=== PATIENT | male | born 1965 | race African-American/Black ===

== ENCOUNTER 2019-09-09 10:31 | Observation (INO) | payer BC ==
[2019-09-09] MEDS ORDERED: NA CHLORIDE 0.9% 500 ML ONE (11:07)
[2019-09-09] MEDS ORDERED: PROMETHAZINE INJ 25 MG/ML AMP ONE (11:18)
[2019-09-09 11:22] LABS: Absolute Lymphocytes (CBC) 1.9 K/uL (0.7-4.9); Basophils % 0.2 % (0-1.3); Hematocrit 44.4 % (39.6-49.0); Lymphocytes % 41.1 % (15.3-44.8); RBC Red Blood Cell Count 5.62 M/uL (4.33-5.43)
--- NOTE | 2019-09-09 11:22 | RAD REPORT ---
EXAM DESCRIPTION: CT - Head Brain Wo Cont - 09/09/2019 11:14 am CLINICAL HISTORY: DIZZINESS COMPARISON: No comparisons TECHNIQUE: Axial 5 mm thick images of the head were obtained without IV contrast. All CT scans are performed using dose optimization technique as appropriate and may include automated exposure control or mA/KV adjustment according to patient size. FINDINGS: No intracranial hemorrhage, mass, edema or shift of mid-line structures. No acute infarcti on changes seen. No abnormal extra-axial fluid collections. Ventricles are normal. Mastoid air cells are clear. There is near complete opacification of each maxillary sinus from large polyps or retention cysts. No air-fluid level in the maxillary sinuses. Patchy mucosal thickening see n in the ethmoid air cells. No acute bony findings. IMPRESSION: No intracranial abnormality identifiable. Chronic maxillary sinus changes with patchy mucosal thickening in the ethmoid air cells.
[2019-09-09 11:26] LABS: Protime INR 1.01
--- NOTE | 2019-09-09 11:36 | RAD REPORT ---
EXAM DESCRIPTION: RAD - Chest Single View - 09/09/2019 11:29 am CLINICAL HISTORY: dizziness, shortness of breath TECHNIQUE: AP portable chest image was obtained 09/09/2019 11:29 am . FINDINGS: Lungs are clear. Heart and vasculature are normal. No measurable pleural effusion and no p neumothorax. No acute bony abnormality seen. No acute aortic findings suspected. IMPRESSION: No acute cardiopulmonary process.
[2019-09-09 11:45] LABS: ALT/SGPT 38 U/L (12-78); AST/SGOT 26 U/L (15-37); Albumin 4.1 g/dL (3.4-5.0); Alkaline Phosphatase 81 U/L (45-117); BUN Blood Urea Nitrogen 18 mg/dL (7-18); Bicarbonate 28 mmol/L (21-32); Bilirubin Direct 0.1 mg/dL (0-0.2); Bilirubin Total 0.5 mg/dL (0.2-1.0); Glucose Level 117 mg/dL (74-106); Magnesium 2.2 mg/dL (1.8-2.4); NT PRO-BNP 6 pg/mL (<125); Potassium 3.7 mmol/L (3.5-5.1); Protein, Total 7.5 g/dL (6.4-8.2); Sodium Level 142 mmol/L (136-145); Troponin (Emerg Dept Use Only) < 0.02 ng/mL (0.0-0.045)
--- NOTE | 2019-09-09 12:25 | EDPHYS ---
Physician Documentation [facility] Name: Walter Kaur Age: 54 yrs Sex: Male : 1965 Arrival Date: 09/09/2019 Time: 10:32 Bed 7 Private MD: ED Physician Judah Anand HPI: 09/08 12:40 This 54 yrs old Black Male presents to ER via Wheelchair with complaints of Dizziness. snw 12:40 The patient presents with dizziness, generalized weakness, lightheadedness. Onset: The snw symptoms/episode began/occurred suddenly. Context: occurred at work, occurred while the patient was walking, just prior to the episode the patient experienced no apparent symptoms. Modifying factors: The symptoms are alleviated by nothing, the symptoms are aggravated by nothing. Associated signs and symptoms: Pertinent positives: diaphoresis. Severity of symptoms: At their worst the symptoms were severe in the emergency department the symptoms have improved. Patient's baseline: Neuro: alert and fully oriented, orientated to person, place, time, Ambulation: unable to walk, secondary to dizziness, Speech: normal. The patient has not experienced similar symptoms in the past. The patient has not recently seen a physician. Historical: - Allergies: 10:55 No Known Allergies; hb - Immunization history:: Adult Immunizations up to date. - Social history:: Smoking status: Patient denies any tobacco usage or history of. ROS: 12:38 Constitutional: Negative for fever, chills, and weight loss, Eyes: Negative for injury, snw pain, redness, and discharge, ENT: Negative for injury, pain, and discharge, Neck: Negative for injury, pain, and swelling, Cardiovascular: Negative for chest pain, palpitations, and edema, Respiratory: Negative for shortness of breath, cough, wheezing, and pleuritic chest pain, Abdomen/GI: Negative for abdominal pain, nausea, vomiting, diarrhea, and constipation, Back: Negative for injury and pain, : Negative for injury, bleeding, discharge, and swelling, MS/Extremity: Negative for injury and deformity. 12:38 Skin: Positive for diaphoresis. 12:38 Neuro: Positive for dizziness. Exam: 12:38 Head/Face: Normocephalic, atraumatic. Eyes: Pupils equal round and reactive to light, snw extra-ocular motions intact. Lids and lashes normal. Conjunctiva and sclera are non-icteric and not injected. Cornea within normal limits. Periorbital areas with no swelling, redness, or edema. ENT: Nares patent. No nasal discharge, no septal abnormalities noted. Tympanic membranes are normal and external auditory canals are clear. Oropharynx with no redness, swelling, or masses, exudates, or evidence of obstruction, uvula midline. Mucous membranes moist. Neck: Trachea midline, no thyromegaly or masses palpated, and no cervical lymphadenopathy. Supple, full range of motion without nuchal rigidity, or vertebral point tenderness. No Meningismus. Chest/axilla: Normal chest wall appearance and motion. Nontender with no deformity. No lesions are appreciated. Cardiovascular: bradycardic rate and rhythm with a normal S1 and S2. No gallops, murmurs, or rubs. Normal PMI, no JVD. No pulse deficits. Respiratory: Lungs have equal breath sounds bilaterally, clear to auscultation and percussion. No rales, rhonchi or wheezes noted. No increased work of breathing, no retractions or nasal flaring. Abdomen/GI: Soft, non-tender, with normal bowel sounds. No distension or tympany. No guarding or rebound. No evidence of tenderness throughout. Back: No spinal tenderness. No costovertebral tenderness. Full range of motion. 12:38 Constitutional: The patient appears awake, in obvious distress, mildly distressed. 12:38 Skin: Appearance: normal except for affected area, Moisture: diaphoretic. 12:38 Neuro: Orientation: is normal, Mentation: is normal, Memory: is normal, seizure activity, is not displayed by the patient. Vital Signs: 10:53 BP 151 / 87; Pulse 56; Resp 16; Temp 98.1; Pulse Ox 97% on R/A; Weight 77.11 kg; Height hb 5 ft. 5 in. (165.10 cm); Pain 0/10; 12:01 BP 107 / 85; Pulse 51; Resp 16; Pulse Ox 97% on R/A; Pain 0/10; hb 12:49 BP 169 / 81; Pulse 55; Resp 15; Pulse Ox 98% on R/A; Pain 0/10; hb 13:47 BP 158 / 93; Pulse 56; Resp 16; Pulse Ox 97% ; hb 10:53 Body Mass Index 28.29 (77.11 kg, 165.10 cm) hb MDM: 11:05 Patient medically screened. snw 12:24 Data reviewed: vital signs, nurses notes. Data interpreted: Pulse oximetry: on room air snw is 97 %. Interpretation: normal. Counseling: I had a detailed discussion with the patient and/or guardian regarding: the historical points, exam findings, and any diagnostic results supporting the discharge/admit diagnosis, the presence of at least one elevated blood pressure reading (>120/80) during this emergency department visit, lab results, radiology results, the need for further work-up and treatment in the hospital. Physician consultation: Sergo OLSEN was called at 12:24, was contacted at 12:24, regarding admission, to the telemetry unit. 09/08 10:55 Order name: Basic Metabolic Panel; Complete Time: 12:04 snw 09/08 10:55 Order name: CBC with Diff; Complete Time: 11:44 snw 09/08 10:55 Order name: LFT's; Complete Time: 12:04 snw 09/08 10:55 Order name: Magnesium; Complete Time: 12:04 snw 09/08 10:55 Order name: NT PRO-BNP; Complete Time: 12:04 snw 09/08 10:55 Order name: PT-INR; Complete Time: 11:44 snw 09/08 10:55 Order name: CT Head Brain wo Cont; Complete Time: 11:44 snw 09/08 10:55 Order name: Troponin (emerg Dept Use Only); Complete Time: 12:04 snw 09/08 10:55 Order name: XRAY Chest (1 view); Complete Time: 11:44 snw 09/08 11:05 Order name: Glucose, Ancillary Testing; Complete Time: 11:05 EDMS 09/08 11:12 Order name: Glucose, Ancillary Testing EDMS 09/08 15:25 Order name: Urine Dipstick--Ancillary (enter results) em1 09/08 10:55 Order name: FSBS; Complete Time: 11:45 snw 09/08 10:55 Order name: EKG; Complete Time: 11:03 snw 09/08 10:55 Order name: EKG - Nurse/Tech; Complete Time: 12:01 snw 09/08 10:55 Order name: Cardiac monitoring; Complete Time: 11:44 snw 09/08 10:55 Order name: Labs collected and sent; Complete Time: 11:44 snw 09/08 10:55 Order name: O2 Per Protocol; Complete Time: 11:44 snw 09/08 10:55 Order name: O2 Sat Monitoring; Complete Time: 11:44 snw Administered Medications: 11:20 Drug: Phenergan 12.5 mg Route: IVP; Site: right forearm; hb 11:35 Drug: NS 0.9% 500 ml Route: IV; Rate: bolus; Site: right forearm; hb Disposition: 09/09/19 12:23 Hospitalization ordered by Bhupinder Montoya for Observation. Preliminary diagnosis are Dizziness and giddiness, Bradycardia, unspecified. - Bed requested for Telemetry/MedSurg (observation). - Status is Observation. hb - Condition is Stable. - Problem is new. - Symptoms have improved. Addendum: 09/11/2019 21:12 Co-signature as Attending Physician, Judah Anand MD Did not see or evaluate patient. p s1 I was available in the ED for consultation. Signature for administrative purposes. . Signatures: Dispatcher [employer] EDMS Vonda Marina RN RN kl Waters, Shelly, CHIPPER FEEDER-C CHIPPER FEEDER-Mis Conley RN RN hb Singer, Phillip, MD MD ps1 Corrections: (The following items were deleted from the chart) 09/08 14:20 12:23 Hospitalization Ordered by Bhupinder Montoya DO for Observation. Preliminary kl diagnosis is Dizziness and giddiness; Bradycardia, unspecified. Bed requested for Telemetry/MedSurg (observation). Status is Observation. Condition is Stable. Problem is new. Symptoms have improved. snw 15:29 14:20 09/09/2019 12:23 Hospitalization Ordered by Bhupinder Montoya DO for Observation. hb Preliminary diagnosis is Dizziness and giddiness; Bradycardia, unspecified. Bed requested for Telemetry/MedSurg (observation). Status is Observation. Condition is Stable. Problem is new. Symptoms have improved. kl
--- NOTE | 2019-09-09 12:25 | ER ---
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 Ebola Screen: No symptoms or risks identified at this time. Initial Sepsis Screen: Does the patient meet any 2 criteria? No. Patient's initial sepsis screen is negative. Does the patient have a suspected source of infection? No. Patient's initial sepsis screen is negative. Risk Assessment: Do you want to hurt yourself or someone else? Patient reports no desire to harm self or others. Onset of symptoms was September 09, 2019. 10:53 Method Of Arrival: Wheelchair hb 10:53 Acuity: SINA 3 hb Triage Assessment: 10:55 General: Appears in no apparent distress. Behavior is calm, cooperative. Pain: Denies hb pain. EENT: No signs and/or symptoms were reported regarding the EENT system. Neuro: Level of Consciousness is awake, alert, obeys commands, Oriented to person, place, time, situation, Reports dizziness. Cardiovascular: Capillary refill < 3 seconds. Respiratory: Respiratory effort is even, unlabored, Respiratory pattern is regular, symmetrical. GI: Reports nausea. : No signs and/or symptoms were reported regarding the genitourinary system. Derm: diaphoretic. Musculoskeletal: No signs and/or symptoms reported regarding the musculoskeletal system. Historical: - Allergies: 10:55 No Known Allergies; hb - Immunization history:: Adult Immunizations up to date. - Social history:: Smoking status: Patient denies any tobacco usage or history of. Screenin:56 Abuse screen: Denies threats or abuse. Denies injuries from another. Nutritional hb screening: No deficits noted. Tuberculosis screening: No symptoms or risk factors identified. Fall Risk None identified. Assessment: 10:56 General: see triage. hb 12:00 Reassessment: Patient appears in no apparent distress at this time. Patient and/or hb family updated on plan of care and expected duration. Pain level reassessed. Patient is alert, oriented x 3, equal unlabored respirations, skin warm/dry/pink. 12:49 Reassessment: Patient appears in no apparent distress at this time. Patient and/or hb family updated on plan of care and expected duration. Pain level reassessed. Patient is alert, oriented x 3, equal unlabored respirations, skin warm/dry/pink. 14:00 Reassessment: Patient appears in no apparent distress at this time. No changes from hb previously documented assessment. Patient and/or family updated on plan of care and expected duration. Pain level reassessed. Patient is alert, oriented x 3, equal unlabored respirations, skin warm/dry/pink. 14:26 Reassessment: Attempted to call report to floor, receiving nurse unassigned at this hb time. Vital Signs: 10:53 BP 151 / 87; Pulse 56; Resp 16; Temp 98.1; Pulse Ox 97% on R/A; Weight 77.11 kg; Height hb 5 ft. 5 in. (165.10 cm); Pain 0/10; 12:01 BP 107 / 85; Pulse 51; Resp 16; Pulse Ox 97% on R/A; Pain 0/10; hb 12:49 BP 169 / 81; Pulse 55; Resp 15; Pulse Ox 98% on R/A; Pain 0/10; hb 13:47 BP 158 / 93; Pulse 56; Resp 16; Pulse Ox 97% ; hb 10:53 Body Mass Index 28.29 (77.11 kg, 165.10 cm) hb ED Course: 10:32 Patient arrived in ED. ag5 10:51 Odilia Adams [facility]C [facility]. snw 10:51 Judah Anand MD is Attending Physician. snw 10:53 Mis Aguilar, JILLIAN is Primary Nurse. hb 10:54 Triage completed. hb 10:56 Arm band placed on. hb 10:56 Patient has correct armband on for positive identification. Bed in low position. Call hb light in reach. 11:10 Inserted saline lock: 20 gauge in right forearm, using aseptic technique. Blood hb collected. 11:14 CT Head Brain wo Cont In Process Unspecified. EDMS 11:30 XRAY Chest (1 view) In Process Unspecified. EDMS 11:45 Glucose, Ancillary Testing Sent. hb 12:23 Prezas, Bhupinder, DO is Hospitalizing Provider. snw Administered Medications: 11:20 Drug: Phenergan 12.5 mg Route: IVP; Site: right forearm; hb 11:35 Drug: NS 0.9% 500 ml Route: IV; Rate: bolus; Site: right forearm; hb Outcome: 12:23 Decision to Hospitalize by Provider. snw 15:29 Patient left the ED. 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
--- NOTE | 2019-09-09 14:21 | P.HP ---
Certification for Inpatient Patient admitted to: Observation With expected LOS: <2 Midnights Patient will require the following post-hospital care: None Practitioner: I am a practitioner with admitting privileges, knowledge of patient current condition, hospital course, and medical plan of care. Services: Services provided to patient in accordance with Admission requirements found in Title 42 Section 412.3 of the Code of Federal Regulations <Sergo Arroyo - Last Filed: 09/09/19 14:15> Patient History Date of Service: 09/09/19 Primary Care Provider: none Reason for admission: Near syncope, dizziness History of Present Illness: 54-year-old male with no significant past medical history presents the emergency department after an episode where he was walking down the hallway and had sudden onset of severe dizziness. Patient reports that the dizziness caused him to fall against the wall and became diaphoretic with nausea. Patient was wheeled to the emergency department for evaluation. Patient reports that he feels significantly better now but he is still having some dizziness. Patient's heart rate has remained in the low 50s during his emergency department visit. Patient does not take any medications at home. ED provider wishes to admit patient for observation status and further evaluation and management for this episode. Patient did not have any hypotension but stated that nothing like this has ever happened to him before. Patient will be admitted for further evaluation and management. When I saw the patient in the emergency department he was awake, alert, oriented x4. 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 Home medications list reviewed: Yes - Past Medical/Surgical History Has patient received pneumonia vaccine in the past: No Diabetic: No -: None -: Cholecystectomy Psychosocial/ Personal History: Patient lives at home with his - Family History Family History: Reviewed- Non-Contributory - Social History Smoking Status: Never smoker Alcohol use: No CD- Drugs: No Caffeine use: No Place of Residence: Home <Sergo Arroyo - Last Filed: 09/09/19 14:15> Date of Service: 09/09/19 <Bhupinder Montoya - Last Filed: 09/09/19 18:01> Review of Systems General: Unremarkable Eyes: Unremarkable ENT: Unremarkable Respiratory: Unremarkable Cardiovascular: Light Headedness Gastrointestinal: Unremarkable Genitourinary: Unremarkable Musculoskeletal: Unremarkable Integumentary: Unremarkable Neurological: Other (Dizziness) <Sergo Arroyo - Last Filed: 09/09/19 14:15> Physical Examination - Physical Exam General: Alert, In no apparent distress, Oriented x3 HEENT: Atraumatic, Normocephalic Neck: Supple Respiratory: Clear to auscultation bilaterally, Normal air movement Cardiovascular: No edema Capillary refill: <2 Seconds Gastrointestinal: Normal bowel sounds, Soft and benign Musculoskeletal: No contractures, No erythema Integumentary: No tenderness/swelling, No erythema, No warmth Neurological: Normal gait, Normal speech, Normal strength at 5/5 x4 extr, Normal tone, Sensation intact, Normal affect - Studies Laboratory Data (last 24 hrs) 09/09/19 11:10: PT 11.9, INR 1.01 09/09/19 11:10: WBC 4.7, Hgb 14.7, Hct 44.4, Plt Count 251 09/09/19 11:10: Sodium 142, Potassium 3.7, BUN 18, Creatinine 1.13, Glucose 117 H, Magnesium 2.2, Total Bilirubin 0.5, AST 26, ALT 38, Alkaline Phosphatase 81 <Sergo Arroyo - Last Filed: 09/09/19 14:15> - Studies Laboratory Data (last 24 hrs) 09/09/19 11:10: PT 11.9, INR 1.01 09/09/19 11:10: WBC 4.7, Hgb 14.7, Hct 44.4, Plt Count 251 09/09/19 11:10: Sodium 142, Potassium 3.7, BUN 18, Creatinine 1.13, Glucose 117 H, Magnesium 2.2, Total Bilirubin 0.5, AST 26, ALT 38, Alkaline Phosphatase 81 <Bhupinder Montoya - Last Filed: 09/09/19 18:01> Assessment and Plan - Plan Assessment Dizziness with near syncope, diaphoresis High blood pressure without previously diagnosed hypertension Plan Dizziness with near syncope, diaphoresis: Patient will remain on telemetry for the duration of hospitalization, will obtain MRI stroke protocol, echocardiogram, ultrasound of the carotids. Will also obtain TSH and free T4 levels. DVT prophylaxis with Lovenox 40 mg subcutaneous once daily. Anticipate workup will be benign, likely discharge tomorrow. High blood pressure without previously diagnosed hypertension: Will continue to monitor patient's blood pressure throughout this hospitalization. If blood pressure remains high patient may benefit from an oral blood pressure medication. Discharge Plan: Home Plan to discharge in: 24 Hours - Advance Directives Does patient have a Living Will: No Does patient have a Durable POA for Healthcare: No - Code Status/Comfort Care Code Status Assessed: Yes (Patient is full code) Critical Care: No Time Spent Managing Pts Care (In Minutes): 55 <Sergo Arroyo - Last Filed: 09/09/19 14:15> - Plan Case discussed at length with nurse practitioner. Agree with evaluation, assessment and plan of care. Will obtain MRI, echo and carotid Doppler to rule out stroke. Blood pressure elevated. Will monitor closely. Patient may require medication. <Bhupinder Montoya - Last Filed: 09/09/19 18:01>
[2019-09-09 15:42] VITALS: BMI 29.5
[2019-09-09] MEDS ORDERED: ACETAMINOPHEN 500 MG TAB PO PRN (15:47)
[2019-09-09] MEDS ORDERED: ONDANSETRON 4 MG/2 ML VIAL IV PRN (15:47)
[2019-09-09] MEDS: NA CHLORIDE 0.9% 1,000 ML IV SCH (16:32)
[2019-09-10 05:31] VITALS: O2SAT 95
[2019-09-10] MEDS: NA CHLORIDE 0.9% 1,000 ML IV SCH (05:32)
[2019-09-10 06:01] LABS: Absolute Lymphocytes (CBC) 1.7 K/uL (0.7-4.9); Basophils % 1.2 % (0-1.3); Hematocrit 43.3 % (39.6-49.0); Lymphocytes % 30.1 % (15.3-44.8); MPV 8.3 fL (7.6-11.3); RBC Red Blood Cell Count 5.42 M/uL (4.33-5.43)
[2019-09-10 06:23] LABS: BUN Blood Urea Nitrogen 13 mg/dL (7-18); Bicarbonate 26 mmol/L (21-32); Glucose Level 111 mg/dL (74-106); Magnesium 2.3 mg/dL (1.8-2.4); Potassium 4.1 mmol/L (3.5-5.1); Sodium Level 143 mmol/L (136-145)
--- NOTE | 2019-09-10 07:19 | EKG ---
Test Date: 2019-09-09 Test Time: 11:55:57 Stave Inspector: HB MEASUREMENT RESULTS: Intervals: Rate: 52 WA: 158 QRSD: 90 QT: 430 QTc: 399 [place]: P: 41 WA: 158 QRS: 7 T: 3 INTERPRETIVE STATEMENTS: Sinus bradycardia Minimal voltage criteria for LVH, may be normal variant Nonspecific ST and T wave abnormality Abnormal ECG No previous ECG available for comparison Electronically Signed On 09-10-19 07:18:12 CDT by Gee Rodriguez
--- NOTE | 2019-09-10 08:42 | P.DS ---
Admission Date: 09/09/19 Discharge Date: 09/10/19 Primary Care Provider: none Reason for Admission: Near syncope, dizziness Consultations: None Procedures: Chest Xray EXAM DESCRIPTION: RAD - Chest Single View - 09/09/2019 11:29 am CLINICAL HISTORY: dizziness, shortness of breath TECHNIQUE: AP portable chest image was obtained 09/09/2019 11:29 am . FINDINGS: Lungs are clear. Heart and vasculature are normal. No measurable pleural effusion and no pneumothorax. No acute bony abnormality seen. No acute aortic findings suspected. IMPRESSION: No acute cardiopulmonary process. CT Head EXAM DESCRIPTION: CT - Head Brain Wo Cont - 09/09/2019 11:14 am CLINICAL HISTORY: DIZZINESS COMPARISON: No comparisons TECHNIQUE: Axial 5 mm thick images of the head were obtained without IV contras t. All CT scans are performed using dose optimization technique as appropriate and may include automated exposure control or mA/KV adjustment according to patient size. FINDINGS: No intracranial hemorrhage, mass, edema or shift of mid-line structures. No acute infarction changes seen. No abnormal extra-axial fluid collections. Ventricles are normal. Mastoid air cells are clear. There is near complete opacification of each maxillary sinus from large polyps or retention cysts. No air-fluid level in the maxillary sinuses. Patchy mucosal thickening seen in the ethmoid air cells. No acute bony findings. IMPRESSION: No intracranial abnormality identifiable. Chronic maxillary sinus changes with patchy mucosal thickening in the ethmoid air cells US Carotids Performed, patient without significant hemodynamic changes or plaque Echocardiogram Performed MRI Stroke Protocol Unremarkable for any acute findings. Medical Problem List Dizziness/near syncope High blood pressure without underlying history of hypertension Brief History of Present Illness: 54-year-old male with no significant past medical history presents the emergency department after an episode where he was walking down the hallway and had sudden onset of severe dizziness. Patient reports that the dizziness caused him to fall against the wall and became diaphoretic with nausea. Patient was wheeled to the emergency department for evaluation. Patient reports that he feels significantly better now but he is still having some dizziness. Patient's heart rate has remained in the low 50s during his emergency department visit. Patient does not take any medications at home. ED provider wishes to admit patient for observation status and further evaluation and management for this episode. Patient did not have any hypotension but stated that nothing like this has ever happened to him before. Patient will be admitted for further evaluation and management. When I saw the patient in the emergency department he was awake, alert, oriented x4. Patient was able to stand at bedside without any difficulty, grade foreman equal and strong. Hospital Course: 54-year-old otherwise healthy male who presented emergency department after an episode of severe dizziness, diaphoresis, nausea was admitted for evaluation and management. During his hospital stay patient received a CT scan of the head, MRI stroke protocol, ultrasound of the carotids, echocardiogram, chest x-ray, EKG, and labs. His workup was benign. Patient denies any further episodes of severe dizziness, chest pain, shortness of breath, unilateral weakness. Patient without any focal neurological deficits. Patient able to walk without any difficulty. Patient tolerating a diet. The patient's blood pressure has remained relatively high during his admission and he will likely benefit from an oral antihypertensive agent. Patient remains stable this time. Will recommend discharge with close followup with primary care doctor and neurology. Patient with high blood pressure readings during this hospitalization without history of hypertension. Patient will be prescribed Norvasc 2.5 mg once daily. Patient went to follow up with primary care doctor for further adjustment of blood pressure medication. <Sergo Arroyo - Last Filed: 09/10/19 12:09> Admission Date: 09/09/19 Discharge Date: 09/10/19 Hospital Course: Agree with plan of care. Discussed with SCENIC ARTIST. <Bhupinder Montoya - Last Filed: 09/10/19 18:16> Disposition: ROUTINE DISCHARGE Discharge Condition: GOOD Vital Signs/Physical Exam: Temp Pulse Resp BP Pulse Ox 97.9 F 56 18 144/73 H 96 09/10/19 04:00 09/10/19 04:00 09/10/19 04:00 09/10/19 04:00 09/10/19 04:00 General: Alert, In no apparent distress, Oriented x3 HEENT: Atraumatic, Normocephalic Neck: Supple, 2+ carotid pulse no bruit, JVD not distended Respiratory: Clear to auscultation bilaterally, Normal air movement Cardiovascular: No edema, Normal pulses, Regular rate/rhythm, Normal S1 S2 Capillary refill: <2 Seconds Gastrointestinal: Normal bowel sounds, Soft and benign Musculoskeletal: No swelling, No contractures, No erythema Integumentary: No rashes, No significant lesion Neurological: Normal gait, Normal speech, Normal strength at 5/5 x4 extr, Normal tone Laboratory Data at Discharge: WBC 5.5 K/uL (4.3-10.9) D 09/10/19 05:18 Hgb 14.1 g/dL (13.6-17.9) 09/10/19 05:18 Hct 43.3 % (39.6-49.0) 09/10/19 05:18 Plt Count 229 K/uL (152-406) 09/10/19 05:18 PT 11.9 SECONDS (9.5-12.5) 09/09/19 11:10 INR 1.01 09/09/19 11:10 Sodium 143 mmol/L (136-145) 09/10/19 05:18 Potassium 4.1 mmol/L (3.5-5.1) 09/10/19 05:18 BUN 13 mg/dL (7-18) 09/10/19 05:18 Creatinine 1.03 mg/dL (0.55-1.3) 09/10/19 05:18 Glucose 111 mg/dL (74-106) H 09/10/19 05:18 Phosphorus 3.7 mg/dL (2.5-4.9) 09/10/19 05:18 Magnesium 2.3 mg/dL (1.8-2.4) 09/10/19 05:18 Total Bilirubin 0.5 mg/dL (0.2-1.0) 09/09/19 11:10 AST 26 U/L (15-37) 09/09/19 11:10 ALT 38 U/L (12-78) 09/09/19 11:10 Alkaline Phosphatase 81 U/L (45-117) 09/09/19 11:10 <Sergo Arroyo - Last Filed: 09/10/19 12:09> Vital Signs/Physical Exam: Temp Pulse Resp BP Pulse Ox 98.0 F 58 16 167/86 H 98 09/10/19 12:00 09/10/19 12:00 09/10/19 12:00 09/10/19 12:00 09/10/19 12:00 Laboratory Data at Discharge: WBC 5.5 K/uL (4.3-10.9) D 09/10/19 05:18 Hgb 14.1 g/dL (13.6-17.9) 09/10/19 05:18 Hct 43.3 % (39.6-49.0) 09/10/19 05:18 Plt Count 229 K/uL (152-406) 09/10/19 05:18 PT 11.9 SECONDS (9.5-12.5) 09/09/19 11:10 INR 1.01 09/09/19 11:10 Sodium 143 mmol/L (136-145) 09/10/19 05:18 Potassium 4.1 mmol/L (3.5-5.1) 09/10/19 05:18 BUN 13 mg/dL (7-18) 09/10/19 05:18 Creatinine 1.03 mg/dL (0.55-1.3) 09/10/19 05:18 Glucose 111 mg/dL (74-106) H 09/10/19 05:18 Phosphorus 3.7 mg/dL (2.5-4.9) 09/10/19 05:18 Magnesium 2.3 mg/dL (1.8-2.4) 09/10/19 05:18 Total Bilirubin 0.5 mg/dL (0.2-1.0) 09/09/19 11:10 AST 26 U/L (15-37) 09/09/19 11:10 ALT 38 U/L (12-78) 09/09/19 11:10 Alkaline Phosphatase 81 U/L (45-117) 09/09/19 11:10 <Bhupinder Montoya - Last Filed: 09/10/19 18:16> Patient Discharge Instructions: 1. Patient needs to follow up with primary care doctor in the next 1-2 weeks to follow up this hospitalization. Also recommend patient follow up with neurology on outpatient basis. 2. 54-year-old otherwise healthy male who presented emergency department after an episode of severe dizziness, diaphoresis, nausea was admitted for evaluation and management. During his hospital stay patient received a CT scan of the head, MRI stroke protocol, ultrasound of the carotids, echocardiogram, chest x-ray, EKG, and labs. His workup was benign. Patient denies any further episodes of severe dizziness, chest pain, shortness of breath, unilateral weakness. Patient without any focal neurological deficits. Patient able to walk without any difficulty. Patient tolerating a diet. The patient's blood pressure has remained relatively high during his admission and he will likely benefit from an oral antihypertensive agent. Patient remains stable this time. Will recommend discharge with close followup with primary care doctor and neurology. Patient with high blood pressure readings during this hospitalization without history of hypertension. Patient will be prescribed Norvasc 2.5 mg once daily. Patient went to follow up with primary care doctor for further adjustment of blood pressure medication. Diet: Regular Activity: Ad david Time spent managing pt's care (in minutes): 55 <Sergo Arroyo - Last Filed: 09/10/19 12:09> <Bhupinder Montoya - Last Filed: 09/10/19 18:16> Home Medications: Amlodipine [Norvasc] 2.5 mg PO DAILY 30 Days #30 tab 09/10/19 New Medications: Amlodipine [Norvasc] 2.5 mg PO DAILY 30 Days #30 tab Followup: Kerwin Presley MD [ASSOCIATE-ACTIVE - CAN ADMIT] -
[2019-09-10] MEDS ORDERED: ENOXAPARIN 40 MG/0.4 ML SQ SCH (09:00)
[2019-09-10] MEDS ORDERED: AMLODIPINE 2.5 MG TAB PO SCH (10:53)
--- NOTE | 2019-09-10 11:49 | RAD REPORT ---
EXAM DESCRIPTION: MRI - Brain W/Wo Cont - 09/10/2019 11:09 am CLINICAL HISTORY: Syncope COMPARISON: September 09, [address] TECHNIQUE: Axial, sagittal, and coronal magnetic images of the brain were obtained. Eighteen cc Mult iHance administered intravenously FINDINGS: No significant abnormal signal within the brain The ventricles are normal in caliber. Diffusion-weighted/ ADC mapping sequences do not demonstrate evidence of an acute infarction. No abnormal enhancement within the brain is seen. An extra-axial fluid collection is not noted. Mucus retention cysts maxillary sinus. Mild to moderate mucoperiosteal thickening ethmoid sinus IMPRESSION: No acute intracranial abnormality displayed
--- NOTE | 2019-09-10 11:53 | RAD REPORT ---
EXAM DESCRIPTION: MRI - MRA Neck W/Wo Cont - 09/10/2019 11:09 am CLINICAL HISTORY: Syncope COMPARISON: None. TECHNIQUE: Magnetic resonance angiogram of the neck was performed. 18 cc MultiHance was administered intravenously. 3D MIPS reconstruction performed FINDINGS: The common carotid, internal carotid and external carotid arteries do not demonstrate a si gnificant stenosis. An aneurysm is not seen. The vertebral arteries are codominant without visualization of an abnormality. IMPRESSION: Unremarkable MRA neck NASCET criteria used. Mild 0-49% stenosis Moderate 50-69% stenosis Severe 70-99% stenosis
--- NOTE | 2019-09-10 11:55 | RAD REPORT ---
EXAM DESCRIPTION: MRI - MRA Head Wo Cont - 09/10/2019 11:09 am CLINICAL HISTORY: Syncope COMPARISON: None. TECHNIQUE: Magnetic resonance angiogram was performed. 3D MIPS reconstruction performed FINDINGS: The anterior cerebral, middle cerebral, posterior cerebral, distal internal carotid and ba silar arteries do not demonstrate a significant stenosis. An aneurysm is not displayed. IMPRESSION: Unremarkable MRA brain.
[2019-09-10 12:23] VITALS: BP 167/86; TEMP 98
--- NOTE | 2019-09-10 14:24 | RAD REPORT ---
EXAM DESCRIPTION: USCarotid Artery Bilateral09/09/2019 9:09 pm CLINICAL HISTORY: syncope COMPARISON: None FINDINGS: The velocity of the right internal carotid artery equals 152 cm/sec. The right ICA/CCA rat io 1.2. The artery is tortuous which likely accounts for the increased velocity The velocity of the left internal carotid artery equals 117 cm/sec. The left ICA/CCA ratio 1. Plaque is not visualized within the carotid arteries The vertebral arteries demonstrate antegrade flow IMPRESSION: No significant abnormalities displayed NASCET criteria used. Mild 0-49% stenosis Moderate 50-69% stenosis Severe 70-99% stenosis
== END 2019-09-10 14:12 | disposition home or self-care (01) ==
LOC: ER 10:31 → ERHOLD 13:27 → 2ND 15:00
PROVIDERS: ADMIT Family Medicine; ATTEND Family Medicine
DX: R55 Syncope and collapse (principal); R03.0 Elevated blood-pressure reading, without diagnosis of hypertension; R61 Generalized hyperhidrosis; Z90.49 Acquired absence of other specified parts of digestive tract; Z20.828 Contact with and (suspected) exposure to other viral communicable diseases
CPT/HCPCS: 93005; 85025 ×2; 80048 ×2; 36415; 83735 ×2; 84100; 85610; 82947; 80076; 84443; 84484; 84439; 83880; 70450; 71045; 93880; 70553; 70544; 70549; 96374; 99284; U0002; A9577; J2550; J1650; J7040; J7030 ×2; G0378 ×3